=== PATIENT | female | born 1965 | race Caucasian/White ===

== ENCOUNTER 2019-05-11 23:06 | Inpatient (IN) | payer OTHER ==
[~2019-05-11] VITALS: Ht 167.6 cm; Wt 105.9 kg
[2019-05-11 23:15] VITALS: Ht 167.6 cm; Wt 105.9 kg
--- NOTE | 2019-05-11 23:20 | NUR ---
PT BIB AMBULANCE FOR C/O CONSTIPATION. PT STATES [place] FOR A BROKEN LEG. PT STATES SHE HAS NOT HAD A BOWEL MOVEMENT SINCE TUESDAY. PT STATES SHE IS IN 10 PAIN. PT STATES "I JUST WANT TO POOP". HAS NAUSEA/V/CONSTIPATION. PT ABD IS SOFT/ROUND. BOWEL SOUNDS PRESENT IN ALL 4 QUADRANTS. PT DENIES ANY OTHER MEDICAL HX EXCEPT "MINOR HIGH CHOLESTEROL" PT R LEG WOUND/ SURGICAL INCISION IS WRAPPED AND UNABLE TO BE VISUALIZED AT THIS TIME. DRESSING IS CLEAN DRY AND INACT. PT IS THROWING UP CURRENTLY JUST STOMACH BILE, PT IS TACHYPNIC FROM PAIN. CHEST RISE IS EQUAL AND RAPID. AWAITING MSE AT THIS TIME. PT CONNECTED TO CARDIAC AND PLETH OX. AT BEDSIDE
[2019-05-11 23:49] LABS: BASOPHIL % 0.4 % (0-2); PLATELET COUNT 315 x10^3mcL (130-400); RED CELL DISTRIBUTION WIDTH 13.4 % (11.5-14.5)
--- NOTE | 2019-05-12 00:22 | NUR ---
PT RETURNED FROM CT
[2019-05-12 00:32] LABS: ALBUMIN 3.3 g/dL (3.4-5.0); ALKALINE PHOSPHATASE 118 U/L (46-116); ALT/SGPT 43 U/L (14-59); AST/SGOT 45 U/L (15-37); BILIRUBIN TOTAL 0.8 mg/dL (0.20-1.00); LIPASE 196 IU/L (73-393); TOTAL PROTEIN, SERUM 6.9 g/dL (6.4-8.2)
[2019-05-12 00:36] LABS: CALCIUM 8.5 mg/dL (8.5-10.1); CARBON DIOXIDE 23.6 mmol/L (21-32); CHLORIDE SERUM 109 mmol/L (98-107); CREATININE SERUM 0.7 mg/dL (0.6-1.0); GFR1 > 60 mL/min; GLUCOSE SERUM 91 mg/dL (74-106); SODIUM SERUM 146 mmol/L (136-145)
--- NOTE | 2019-05-12 00:41 | NUR ---
PT STATES PAIN AND VOMITTING RELIEF WITH MEDICATIONS GIVEN PER EMAR. PT IS SEEN RESTING IN BED IN A POSITION OF COMFORT AND DENIES N/V OR PAIN AT THIS TIME
[2019-05-12] MEDS ORDERED: CLONIDINE HCL0.1 MG PO (03:12)
[2019-05-12] MEDS ORDERED: PAXIL10 MG PO (03:12)
[2019-05-12] MEDS ORDERED: VITAMIN C500 M6 PO (03:14)
[2019-05-12] MEDS ORDERED: CRESTOR5 M1 PO (03:14)
[2019-05-12] MEDS ORDERED: MASON NATURAL1000 IU PO (03:14)
[2019-05-12] MEDS ORDERED: ZOF4 PO (03:15)
[2019-05-12] MEDS ORDERED: OXYCODONE HYDROC5 M2 PO (03:15)
[2019-05-12] MEDS ORDERED: NATURAL IRON65 MG PO (03:15)
[2019-05-12] MEDS ORDERED: GOOD SENSE ASPI81 M3 PO (03:16)
--- NOTE | 2019-05-12 03:31 | NUR ---
REPORT GIVEN TO RENÉE TROY AWAITING ADMIT ORDERS AND THEN WILL SEND THE PT UPSTAIRS
[2019-05-12 04:02] LABS: microscopic required? YES; urine erythrocyte NEGATIVE (NEGATIVE)
[2019-05-12 04:11] LABS: AMPHETAMINE QUAL UR NONE DETECTED (See below)
[2019-05-12 04:25] LABS: MAGNESIUM 1.9 mg/dL (1.8-2.4); PHOSPHOROUS 3.2 mg/dL (2.5-4.9)
[2019-05-12 04:26] LABS: CHOLESTEROL/HDL RATIO 2.9
[2019-05-12 05:11] VITALS: BP 125/54
--- NOTE | 2019-05-12 05:30 | NUR ---
RECEIVED PT FROM ED. PT A/OX4. DENIES PAIN. DENIES SOB ON 2LNC. IV TO RAC PATENT, INTACT. RLE WITH CAST S/P FRACTURE AND SURGERY 05/08. PT UP TO BATHROOM WITH ASSISTANCE, LARGE BOWEL MOVEMENT AT THIS TIME. PT ASSISTED TO BED. ORIENTED PT TO ROOM AND SURROUNDINGS. CALL LIGHT WITHIN REACH, BED IN LOW POSITION. WILL CONTINUE TO MONITOR.
--- NOTE | 2019-05-12 06:22 | NUR ---
RECEIVED PT FROM ICU. PT A/OX4. AMBULATES WITH STEADY GAIT. IV TO LFA PATENT, INTACT. ORIENTED PT TO ROOM AND SURROUNDINGS. PT DENIES PAIN, DENIES SOB ON RA. CALL LIGHT WITHIN REACH, BED IN LOW POSITION. WILL ENDORSE CARE TO ONCOMING SHIFT.
[2019-05-12 06:32] LABS: CALCIUM 7.8 mg/dL (8.5-10.1); CARBON DIOXIDE 34.1 mmol/L (21-32); CHLORIDE SERUM 108 mmol/L (98-107); CREATININE SERUM 0.6 mg/dL (0.6-1.0); GFR1 > 60 mL/min; GLUCOSE SERUM 145 mg/dL (74-106); POTASSIUM SERUM 3.5 mmol/L (3.5-5.1); SODIUM SERUM 147 mmol/L (136-145)
[2019-05-12 06:48] LABS: BASOPHIL % 0.4 % (0-2); PLATELET COUNT 292 x10^3mcL (130-400); RED CELL DISTRIBUTION WIDTH 13.6 % (11.5-14.5)
--- NOTE | 2019-05-12 07:14 | NUR ---
PT SITTING AT SIDE OF BED. AAOX4. SPEECH CLEAR AND APPROPRIATE. RA. CHEST EXPANSION SYMM. NO COUGH NOTED. NO NVD. LAC 20G PERIPHERAL IV SITE WNL AND DRESSING CDI. NS INFUSING @ 100 ML/HR. BED IN LOWEST POSITION ADN CALL LIGHT WITHIN REACH. NO S/SX OF DISTRESS. RLE WRAPPED IN TRE BANDAGE. SURGICAL SITE WITH TEGUDERM ABOVE KNEE.
--- NOTE | 2019-05-12 08:20 | NUR ---
PHYSICAL THERAPIST AT BEDSIDE WITH PATIENT
[2019-05-12 09:22] VITALS: BP 121/78
--- NOTE | 2019-05-12 09:38 | NUR ---
BM REMOVED FROM BSC AT THIS TIME. SMALL SOFT STOOL.
[2019-05-12] MEDS ORDERED: MIRALAX17 GM/Dose PO (11:43)
[2019-05-12 12:02] VITALS: BP 121/78
--- NOTE | 2019-05-12 12:54 | NUR ---
DISCHARGE INSTRUCTIONS PROVIDED. PT VERBALIZES UNDERSTANDING. ID BANDS REMOVED. PT CHANGED INTO CLOTHES. ABLE TO TRANSFER WITH ASSIST. SENT HOME WITH FWW. AT BEDSIDE. ALL FORMS SIGNED. RA. NO CP OR PRESSURE. NO S/SX OF ACUTE DISTRESS.
--- NOTE | 2019-05-12 12:57 | NUR ---
LAC PERIPHERAL IV DISCONTINUED. SITE WNL AND DRESSING CDI. CATHETER TIP INTACT
== END 2019-05-12 13:00 | disposition home or self-care (01) | DRG 392 ==
LOC: ED 23:06 → MU 05-12 02:29
PROVIDERS: Emergency Medicine; ADMIT Internal Medicine
DX: K59.03 Drug induced constipation (principal); E87.0 Hyperosmolality and hypernatremia; E44.1 Mild protein-calorie malnutrition; E78.00 Pure hypercholesterolemia, unspecified; D72.829 Elevated white blood cell count, unspecified; E78.5 Hyperlipidemia, unspecified; K57.30 Diverticulosis of large intestine without perforation or abscess without bleeding; T40.2X5A Adverse effect of other opioids, initial encounter; Z90.49 Acquired absence of other specified parts of digestive tract; Z68.35 Body mass index [BMI] 35.0-35.9, adult; Y92.89 Other specified places as the place of occurrence of the external cause
CPT/HCPCS: G0378; J2270; J2405; J2765; J3010; J7030; Q0092